=== PATIENT | male | born 1965 | race Caucasian/White ===

== ENCOUNTER 2018-03-13 08:12 | Emergency (ER) | payer SELFPAY ==
[~2018-03-13] VITALS: Ht 182.9 cm; Wt 127.0 kg
[~2018-03-13 08:12] MED LIST: ACIPHEX; AGM875T; ALBU17AE23 IH; AML5T; AMLO10TA82 PO; ASP325T; ASPI-86 PO; CYCL10TA9 PO; DIPH1TAB25 PO; DOXY100C2 PO; ENAL2.5T PO; FLUT10SP NS; HYDR1TAB66 PO; LOSA50TA6 PO; METF500T8 PO; METO200T2 PO; MTP100TCR; NADO40TA PO; NADO80TA PO; ONDAN4ODT PO; OXYC-12 PO; PANT20TA2 PO; PARO40TA47 PO; PENI500T PO; PNT40TEC PO; SULF1TAB35 PO; SULF1TAB38 PO; [UNRECOGNIZED DRUG - OTHER]
[2018-03-13] MEDS ORDERED: ASPIRIN 81 MG CHEW (CHILDREN'S ASA) PO ONE (08:30)
[2018-03-13 08:36] LABS: BASOPHILS # (AUTO) 0.1 10^3/uL (0.0-0.1); BASOPHILS % (AUTO) 1 % (0-10); EOSINOPHILS # (AUTO) 0.5 10^3/uL (0.0-0.3); EOSINOPHILS % (AUTO) 5 % (0-10); HEMATOCRIT 48 % (40-54); HEMOGLOBIN 16.7 G/DL (13.3-17.7); LYMPHOCYTES % (AUTO) 25 % (12-44); MEAN CORPUSCULAR HEMOGLOBIN 28 PG (25-34); MEAN CORPUSCULAR HGB CONC 35 G/DL (32-36); MEAN CORPUSCULAR VOLUME 81 FL (80-99); MEAN PLATELET VOLUME 9.6 FL (7.4-10.4); MONOCYTES # (AUTO) 0.8 X 10^3 (0.0-1.0); MONOCYTES % (AUTO) 6 % (0-12); NEUTROPHILS # (AUTO) 7.4 X 10^3 (1.8-7.8); NEUTROPHILS % (AUTO) 63 % (42-75); PLATELET COUNT 352 10^3/uL (130-400); RED BLOOD COUNT 5.88 10^6/uL (4.35-5.85); RED CELL DISTRIBUTION WIDTH 14.1 % (10.0-14.5); WHITE BLOOD COUNT 11.7 10^3/uL (4.3-11.0)
[2018-03-13] MEDS ORDERED: SITA25TA5 PO (08:41)
[2018-03-13] MEDS ORDERED: LOSA25TA21 PO (08:41)
--- NOTE | 2018-03-13 08:49 | Diagnostic Imaging Report ---
INDICATION: Chest pain. COMPARISON: 04/24/2016. FINDINGS: The lungs are clear. Heart and vessels are normal. There is no effusion or pneumothorax. IMPRESSION: No acute appearing abnormality. Dictated by: Dictated on workstation # [id number]
[2018-03-13 08:54] LABS: PROTHROMBIN TIME PATIENT 13.6 SEC (12.2-14.7)
[2018-03-13 08:57] LABS: ALANINE AMINOTRANSFERASE 24 U/L (0-55); ALKALINE PHOSPHATASE 71 U/L (40-136); BILIRUBIN,TOTAL 0.6 MG/DL (0.1-1.0); BUN/CREATININE RATIO 17; CALCIUM 9.2 MG/DL (8.5-10.1); CARBON DIOXIDE 23 MMOL/L (21-32); CHLORIDE 100 MMOL/L (98-107); CREATININE SERUM 0.88 MG/DL (0.60-1.30); GFR ESTIMATED > 60; GLUCOSE 334 MG/DL (70-105); MAGNESIUM 2.1 MG/DL (1.8-2.4); SODIUM 132 MMOL/L (135-145); TOTAL PROTEIN 7.2 GM/DL (6.4-8.2)
[2018-03-13 09:04] LABS: MYOGLOBIN SERUM 48.6 NG/ML (10.0-92.0)
--- NOTE | 2018-03-13 09:13 | ED Chest Pain ---
General Chief Complaint: Chest Pain Stated Complaint: CP,LEFT ARM NUMB Nursing Triage Note: PT AMBULATES TO ROOM 7 PT STATES APPROX 30 MIN AGO PT HAD STABBING CHEST PAIN RATED 9/10. PT DENIES C/P AT THIS X. PT DENIES SOA,NAUSEA OR DIAPHORISIS. Nursing Sepsis Screen: No Definite Risk Source: patient Exam Limitations: no limitations History of Present Illness Date Seen by Provider: Mar 13, 2018 Time Seen by Provider: 08:20 Initial Comments This 52-year-old gentleman presents to the emergency room with complaints of left lower chest pain that occurred in brief stabbing episodes in rapid succession. He denies any chest pain at present. 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. He reports episodes of tachycardia with rapid drops in blood pressure. He frequently has paresthesias of the upper extremities with these episodes. Patient reports he felt such paresthesias today during his episodes of chest pain. He also felt hot and lightheaded. He took aspirin at home and presented promptly to the emergency room. His primary care provider is Dr. Benavides. His podiatrist assistant is Dr. Hutchins. Review of his chart notes a stress test in 2010 showing a hypertensive response but no ischemia. An echocardiogram in 2014 showed a dilated left atrium, pulmonary artery pressure 25, and some mild valvular regurgitation. Allergies and Home Medications Allergies Coded Allergies: No Known Drug Allergies (Verified , 11/09/07) Home Medications Aspirin 81 Mg Tab.chew, 325 MG PO DAILY, (Reported) Losartan Potassium 25 Mg Tablet, Unknown Dose PO DAILY, (Reported) Nadolol 80 Mg Tablet, 40 MG PO BID, (Reported) TAKES 1/2 TAB OF 80MG TWICE DAILY Pantoprazole Sodium 40 Mg Tablet.dr, 40 MG PO DAILY, (Reported) Paroxetine Hcl 40 Mg Tablet, 40 MG PO HS, (Reported) Patient Home Medication List Home Medication List Reviewed: Yes Review of Systems Constitutional: no symptoms reported EENTM: No Symptoms Reported Respiratory: No Symptoms Reported Cardiovascular: See HPI Gastrointestinal: No Symptoms Reported Genitourinary: No Symptoms Reported Musculoskeletal: no symptoms reported Skin: no symptoms reported Psychiatric/Neurological: See HPI Endocrine: No Symptoms Reported Hematologic/Lymphatic: No Symptoms Reported Past Kfrdrps-Ckctbn-Gdgduo Hx Past Med/Social Hx: Reviewed and Corrections made Patient Social History Alcohol Use: Denies Use Recreational Drug Use: No Smoking Status: Never a Smoker Recent Foreign Travel: No Contact w/Someone Who Travel: No Recent Infectious Disease Expo: No Recent Hopitalizations: No Physical Abuse: No Sexual Abuse: No Immunizations Up To Date Date of Influenza Vaccine: Jul 02, 2012 Past Medical History Surgeries: Yes Gallbladder Respiratory: Yes Cardiac: Yes (Neurally mediated HYPOTENSION) Hypertension Neurological: Yes (CONTUSION, PASSED OUT A FEW TIMES, POSSIBLE HEAT STROKE) Reproductive Disorders: No Gastrointestinal: Yes Musculoskeletal: No Endocrine: Yes Diabetes, Non-Insulin dep HEENT: No Cancer: No Psychosocial: Yes Nursing Suicide Risk Score: 0 Blood Disorders: No Physical Exam Vital Signs Vital Signs - First Documented 03/13/18 08:15 Temp 97.4 Pulse 76 Resp 18 B/P (MAP) 187/99 (128) Pulse Ox 96 Capillary Refill : Less Than 3 Seconds Height, Weight, BMI Height: 6'" Weight: 280lbs. oz. 127.499901ir; BMI Method:Stated General Appearance: No Apparent Distress, WD/WN, Obese HEENT: PERRL/EOMI, Normal ENT Inspection Neck: Normal Inspection Respiratory: Chest Non Tender, Lungs Clear, Normal Breath Sounds, No Accessory Muscle Use, No Respiratory Distress Cardiovascular: Regular Rate, Rhythm, No Edema, No Murmur, Normal Peripheral Pulses Gastrointestinal: Normal Bowel Sounds, Non Tender, Soft Extremity: Normal Capillary Refill, Normal Inspection, No Calf Tenderness, No Pedal Edema, Other (Negative Galilea) Neurologic/Psychiatric: Alert, Oriented x3, No Motor/Sensory Deficits, Normal Mood/Affect, 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 Skin: Normal Color, Warm/Dry Progress/Results/Core Measures Results/Orders Lab Results Laboratory Tests Test 03/13/18 08:25 03/13/18 08:28 03/13/18 11:20 Range/Units White Blood Count 11.7 H 4.3-11.0 10^3/uL Red Blood Count 5.88 H 4.35-5.85 10^6/uL Hemoglobin 16.7 13.3-17.7 G/DL Hematocrit 48 40-54 % Mean Corpuscular Volume 81 80-99 FL Mean Corpuscular Hemoglobin 28 25-34 PG Mean Corpuscular Hemoglobin Concent 35 32-36 G/DL Red Cell Distribution Width 14.1 10.0-14.5 % Platelet Count 352 130-400 10^3/uL Mean Platelet Volume 9.6 7.4-10.4 FL Neutrophils (%) (Auto) 63 42-75 % Lymphocytes (%) (Auto) 25 12-44 % Monocytes (%) (Auto) 6 0-12 % Eosinophils (%) (Auto) 5 0-10 % Basophils (%) (Auto) 1 0-10 % Neutrophils # (Auto) 7.4 1.8-7.8 X 10^3 Lymphocytes # (Auto) 3.0 1.0-4.0 X 10^3 Monocytes # (Auto) 0.8 0.0-1.0 X 10^3 Eosinophils # (Auto) 0.5 H 0.0-0.3 10^3/uL Basophils # (Auto) 0.1 0.0-0.1 10^3/uL Prothrombin Time 13.6 12.2-14.7 SEC INR Comment 1.0 0.8-1.4 Activated Partial Thromboplast Time 30 24-35 SEC Sodium Level 132 L 135-145 MMOL/L Potassium Level 4.0 3.6-5.0 MMOL/L Chloride Level 100 98-107 MMOL/L Carbon Dioxide Level 23 21-32 MMOL/L Anion Gap 9 5-14 MMOL/L Blood Urea Nitrogen 15 7-18 MG/DL Creatinine 0.88 0.60-1.30 MG/DL Estimat Glomerular Filtration Rate > 60 BUN/Creatinine Ratio 17 Glucose Level 334 H 70-105 MG/DL Calcium Level 9.2 8.5-10.1 MG/DL Magnesium Level 2.1 1.8-2.4 MG/DL Total Bilirubin 0.6 0.1-1.0 MG/DL Aspartate Amino Transf (AST/SGOT) 21 5-34 U/L Alanine Aminotransferase (ALT/SGPT) 24 0-55 U/L Alkaline Phosphatase 71 40-136 U/L Myoglobin 48.6 10.0-92.0 NG/ML Troponin I < 0.30 < 0.30 <0.30 NG/ML Total Protein 7.2 6.4-8.2 GM/DL Albumin 4.0 3.2-4.5 GM/DL Glucometer 328 H 70-110 MG/DL My Orders Orders - GARY RAMSAY MD Cbc With Automated Diff (03/13/18 08:28) Magnesium (03/13/18 08:28) Chest 1 View, Ap/Pa Only (03/13/18 08:28) Ekg Tracing (03/13/18 08:28) Cardiac Profile 1 (03/13/18 08:28) Comprehensive Metabolic Panel (03/13/18 08:28) Myoglobin Serum (03/13/18 08:28) Protime With Inr (03/13/18 08:28) Partial Thromboplastin Time (03/13/18 08:28) O2 (03/13/18 08:28) Monitor-Rhythm Ecg Trace Only (03/13/18 08:28) Aspirin Chewable Tablet (Baby Aspirin Ch (03/13/18 08:30) Saline Lock/Iv-Start (03/13/18 08:28) Accucheck Stat ONCE (03/13/18 08:31) Troponin I (03/13/18 11:25) Vital Signs/I&O 03/13/18 03/13/18 08:15 13:39 Temp 97.4 Pulse 76 76 Resp 18 18 B/P (MAP) 187/99 (128) 142/68 (128) Pulse Ox 96 96 Blood Pressure Mean: 128 FSBG Bedside Testing Finger Stick Blood Glucose: 328 Blood Glucose Action Taken: REPORTED TO DR Mackey Progress Note #1: Time: 09:35 Progress Note Workup has been unremarkable. Patient states he has had one slight twinge of discomfort in his chest since arrival but otherwise is pain-free. Case was reviewed with Dr. Asif to advise performing a 3 hour troponin. If negative, close outpatient follow-up is recommended. Progress Note #2: Progress Note Patient had no further pain and repeat troponin was negative. Patient was dismissed to outpatient follow-up. Initial ECG Impression Date: Mar 13, 2018 Initial ECG Impression Time: 08:17 Initial ECG Rate: 74 Initial ECG Rhythm: Normal Sinus Comment Sinus rhythm with no ST elevation or depression. First-degree AV block. No axis deviation. Diagnostic Imaging Diagonstic Imaging: Xray Plain Films/CT/US/NM/MRI: chest Comments Chest x-ray viewed by me and report reviewed. See report below: NAME: MICHELLE PORTILLO MED REC#: [id number] PT STATUS: REG ER : 1965 PHYSICIAN: GARY RAMSAY MD ADMIT DATE: 03/13/18/ER Draft Date of Exam:03/13/18 CHEST 1 VIEW, AP/PA ONLY INDICATION: Chest pain. COMPARISON: 04/24/2016. FINDINGS: The lungs are clear. Heart and vessels are normal. There is no effusion or pneumothorax. IMPRESSION: No acute appearing abnormality. Dictated on workstation # [id number] Dict: 03/13/18 0846 Trans: 03/13/18 0849 [facility] [id number] Interpreted by: SHMUEL ANNE Departure Impression Primary Impression: Chest pain Qualified Codes: R07.9 - Chest pain, unspecified Additional Impressions: Hypertension Qualified Codes: I10 - Essential (primary) hypertension Lightheadedness Disposition: 01 HOME, SELF-CARE Condition: Improved Departure-Patient Inst. Referrals: Zhanna ASIF MD, JACQUELINE S DO (PCP/Family) Primary Care Physician Patient Instructions: Chest Pain (DC) Add. Discharge Instructions: Return to care if symptoms worsen again. Follow-up with a podiatrist assistant as soon as possible. You may see Dr. Asif while Dr. Hutchins is out of the office. His contact information is below. All discharge instructions reviewed with patient and/or family. Voiced understanding. Copy Copies To 1: RODO BENAVIDES JOSHUA T MD Mar 13, 2018 09:13
[2018-03-13 13:39] VITALS: BP 142/68
== END 2018-03-13 13:38 | disposition home or self-care (01) ==
LOC: EDUNIT# 08:12 → ER 08:14
DX: R07.89 Other chest pain (principal); I10 Essential (primary) hypertension; R42 Dizziness and giddiness; E11.9 Type 2 diabetes mellitus without complications; Z79.82 Long term (current) use of aspirin
CPT/HCPCS: 36415; 71045; 80053; 82962; 83735; 83874; 84484; 85025; 85610; 85730; 93005; 93041

== ENCOUNTER 2022-10-11 20:57 | Emergency (ER) | payer SELFPAY ==
[~2022-10-11 20:57] MED LIST changes: +LOSA25TA41 PO; +SITA25TA5 PO
--- NOTE | 2022-10-11 21:30 | ED EENT ---
History of Present Illness General Chief Complaint: General Problems/Pain Stated Complaint: ELEV BP/NOSEBLEED Nursing Triage Note: PATIENT ARRIVAL TO ER VIA PRIVATE VEHICLE WITH COMPLAINT OF HYPERTENSION. PT STATES THAT HE TAKES MULTIPLE BLOOD PRESSURE MEDICATIONS AND ITS NORMALLY MUCH BETTER THAN IT IS TONIGHT. PT STATES THAT HE HAS HAD NOSE BLEEDS OFF AND ON THE LAST 3 DAYS. PATIENT DENIES OTHER COMPLAINTS. History of Present Illness Date Seen by Provider: Oct 11, 2022 Time Seen by Provider: 21:20 Initial Comments 57-year-old male presents with sporadic nosebleeds that have been going on for the last few days. He does not feel like there is anything to make it worse or better. He also was concerned because his blood pressure was elevated on his home monitor and wanted to have it checked out. Patient does not have any headaches vision changes chest pain shortness of breath or any other systemic complaints. Allergies and Home Medications Allergies Coded Allergies: No Known Drug Allergies (Verified , 11/09/07) Patient Home Medication List Home Medication List Reviewed: Yes Aspirin ([facility] Aspirin) 81 Mg Tab.chew, 325 MG PO DAILY, (Reported) Entered as Reported by: MORRO GARCIA on 02/15/11 1622 Losartan Potassium (Losartan Potassium) 25 Mg Tablet, Unknown Dose PO DAILY, (Reported) Entered as Reported by: MORRO GARCIA on 03/13/18 0841 Nadolol (Nadolol) 80 Mg Tablet, 40 MG PO BID, (Reported) Entered as Reported by: HAILEY CRAWFORD on 01/12/13 0946 Pantoprazole Sodium (Protonix) 40 Mg Tablet.dr, 40 MG PO DAILY, (Reported) Entered as Reported by: HAILEY CRAWFORD on 01/12/13 0948 Paroxetine Hcl (Paxil) 40 Mg Tablet, 40 MG PO HS, (Reported) Entered as Reported by: HAILEY CRAWFORD on 01/12/13 0948 Sitagliptin Phosphate (Januvia) 25 Mg Tablet, Unknown Dose PO, (Reported) Entered as Reported by: MORRO GARCIA on 03/13/18 0841 Review of Systems Review of Systems Constitutional: no symptoms reported Eyes: No Symptoms Reported Ears: No Symptoms Reported Nose: epistaxis Mouth: no symptoms reported Throat: no symptoms reported Respiratory: no symptoms reported Cardiovascular: no symptoms reported Gastrointestinal: no symptoms reported Past Fpqsftt-Lrkxmf-Notjtv Hx Patient Social History Tobacco Use?: Yes Tobacco type used: Cigarettes Smoking Status: Current Someday Smoker Use of E-Cig and/or Vaping dev: No Substance use?: No Alcohol Use?: No Pt feels they are or have been: No Immunizations Up To Date Influenza Vaccine Up-to-Date: No; Not Current Past Medical History Surgeries: Yes Gallbladder Respiratory: Yes Cardiac: Yes (Neurally mediated HYPOTENSION) Hypertension Neurological: Yes (CONTUSION, PASSED OUT A FEW TIMES, POSSIBLE HEAT STROKE) Reproductive Disorders: No Gastrointestinal: Yes Musculoskeletal: No Endocrine: Yes Diabetes, Non-Insulin dep HEENT: No Cancer: No Psychosocial: Yes Blood Disorders: No Physical Exam Vital Signs Vital Signs - First Documented 10/11/22 21:05 Temp 36.3 Pulse 60 Resp 18 B/P (MAP) 197/110 (139) Pulse Ox 96 O2 Delivery Room Air Height, Weight, BMI Height: 6'" Weight: 280lbs. oz. 127.793938kk; BMI Method:Stated General Appearance: WD/WN, no apparent distress Nose: dried blood Neck: full range of motion, supple Cardiovascular: normal peripheral pulses, regular rate, rhythm Respiratory: chest non-tender, lungs clear, normal breath sounds Neurologic/Psychiatric: alert, normal mood/affect, oriented x 3 Skin: normal color, warm/dry Progress/Results/Core Measures Results/Orders My Orders Orders - CONCHA MEHTA DO Oxymetazoline 0.05% Nasal [place]ber[place] (Afrin 0. (10/12/22 09:00) Oxymetazoline 0.05% Nasal [place]ber[place] (Afrin 0. (10/11/22 21:40) Medications Given in ED Current Medications Medications Dose Ordered Sig/Brian Route Start Time Stop Time Status Last Admin Dose Admin Oxymetazoline HCl 30 ml STK-MED ONCE .ROUTE 10/11/22 21:40 10/11/22 21:44 DC 10/11/22 21:46 30 ML Vital Signs/I&O 10/11/22 10/11/22 21:05 22:09 Temp 36.3 Pulse 60 66 Resp 18 18 B/P (MAP) 197/110 (139) 150/77 Pulse Ox 96 99 O2 Delivery Room Air Room Air Blood Pressure Mean: 139 Progress Progress Note : Progress Note Patient with no active nosebleed while in the ER. He had resolved prior to arrival. We did administer Afrin which she reports seem to help significantly. Patient's blood pressure remained around systolics 150 throughout his stay. He is currently on blood pressure medication. Recommend he monitors that and follows up with his primary care provider as needed. Patient should use Afrin twice to 3 times daily as needed for the nosebleed. I did discuss with him limited to 3 days of use. Patient was also given precautions to not blow his nose, sneeze with an open mouth and other epistaxis precautions. Patient stable and discharged Departure Impression Primary Impression: Epistaxis Additional Impression: Elevated blood pressure reading Disposition: HOME, SELF-CARE Condition: Stable Departure-Patient Inst. Referrals: RODO OSCAR DO (PCP/Family) Primary Care Physician Patient Instructions: High Blood Pressure in Adults, Nosebleeds (DC), Humidifiers Add. Discharge Instructions: Afrin 2-3 times daily as needed over the next 2 to 3 days. Please limit to 3 days maximum use. May also use a thin layer of Vaseline to help moisten your nose. Follow-up with your primary care provider if your blood pressure reading continue to be slightly elevated above your normal for reevaluation of your blood pressure medications and further checkup. Return to the ER with any concerns. All discharge instructions reviewed with patient and/or family. Voiced understanding. CONCHA MEHTA DO Oct 11, 2022 21:30
[2022-10-11] MEDS ORDERED: OXYMETAZOLINE (AFRIN) 0.05% NA 30 ML BTL ONE (21:40)
[2022-10-11 22:09] VITALS: BP 150/77
[2022-10-12] MEDS ORDERED: OXYMETAZOLINE (AFRIN) 0.05% NA 30 ML BTL SCH (09:00)
== END 2022-10-11 22:13 | disposition home or self-care (01) ==
LOC: EDUNIT# 20:57 → ER 21:00
DX: R04.0 Epistaxis (principal); I10 Essential (primary) hypertension; F17.210 Nicotine dependence, cigarettes, uncomplicated; Z28.310 Unvaccinated for COVID-19
CPT/HCPCS: 99283

== ENCOUNTER 2023-07-14 10:28 | Emergency (ER) | payer SELFPAY ==
[~2023-07-14] VITALS: Ht 180.3 cm; Wt 124.0 kg
[2023-07-14] MEDS ORDERED: NS IV 1000 ML 1,000 ML IV STA (10:55)
[2023-07-14] MEDS ORDERED: dexAMETHasone INJ 10 MG/ML 1 ML VIAL IV ONE (11:00)
[2023-07-14 11:02] LABS: ALBUMIN 4.2 GM/DL (3.2-4.5); BASOPHILS # (AUTO) 0.1 10^3/uL (0.0-0.1); BASOPHILS % (AUTO) 1 % (0-10); EOSINOPHILS % (AUTO) 9 % (0-10); HEMATOCRIT 50 % (40-54); HEMOGLOBIN 16.9 g/dL (13.3-17.7); LYMPHOCYTES % (AUTO) 28 % (12-44); MEAN CORPUSCULAR HEMOGLOBIN 29 pg (25-34); MEAN CORPUSCULAR HGB CONC 34 g/dL (32-36); MEAN CORPUSCULAR VOLUME 86 fL (80-99); MEAN PLATELET VOLUME 9.6 fL (9.0-12.2); MONOCYTES # (AUTO) 0.8 10^3/uL (0.0-1.0); MONOCYTES % (AUTO) 7 % (0-12); NEUTROPHILS % (AUTO) 55 % (42-75); PLATELET COUNT 375 10^3/uL (130-400); POTASSIUM 3.4 MMOL/L (3.6-5.0); WHITE BLOOD COUNT 10.9 10^3/uL (4.3-11.0)
[2023-07-14 11:04] LABS: CALCIUM 9.2 MG/DL (8.5-10.1)
[2023-07-14 11:05] LABS: TOTAL PROTEIN 7.7 GM/DL (6.4-8.2)
[2023-07-14 11:07] LABS: BILIRUBIN,TOTAL 0.5 MG/DL (0.1-1.0)
[2023-07-14 11:09] LABS: CREATININE SERUM 0.78 MG/DL (0.60-1.30)
--- NOTE | 2023-07-14 11:09 | ED General ---
General Chief Complaint: Respiratory Problems Stated Complaint: SOA/INSECT BITE Source of Information: Patient Exam Limitations: No Limitations History of Present Illness Date Seen by Provider: Jul 14, 2023 Time Seen by Provider: 10:47 Initial Comments Here with complaint of some dizziness weakness with potentially some mild shortness of air. He was stung by some sort 3 days ago to the back of the neck. He has an area of swelling to that. Denies fever or chills. He has been stung by a couple different insects without significant allergic reaction in the past. He is unsure of what is going on. Does have history of diabetes but does not know what his sugar at [facility] check. Also has a history of hypertension and diabetes and hypotension syndrome at times. He denies chest pain, nausea, vomiting, diarrhea or dysuria. Reports eating and drinking okay. Timing/Duration: 2-3 Days Severity: Mild, Moderate Associated Systoms: No Cough, No Nausea/Vomiting; Shortness of Air, Weakness Allergies and Home Medications Allergies Coded Allergies: No Known Drug Allergies (Verified , 07/14/23) Patient Home Medication List Home Medication List Reviewed: Yes Aspirin ([facility] Aspirin) 81 Mg Tab.chew, 325 MG PO DAILY, (Reported) Entered as Reported by: MORRO GARCIA on 02/15/11 1622 Losartan Potassium (Losartan Potassium) 25 Mg Tablet, Unknown Dose PO DAILY, (Re ported) Entered as Reported by: MORRO GARCIA on 03/13/18 0841 Nadolol (Nadolol) 80 Mg Tablet, 40 MG PO BID, (Reported) Entered as Reported by: HAILEY CRAWFORD on 01/12/13 0946 Pantoprazole Sodium (Protonix) 40 Mg Tablet.dr, 40 MG PO DAILY, (Reported) Entered as Reported by: HAILEY CRAWFORD on 01/12/13 0948 Paroxetine Hcl (Paxil) 40 Mg Tablet, 40 MG PO HS, (Reported) Entered as Reported by: HAILEY CRAWFORD on 01/12/13 0948 Sitagliptin Phosphate (Januvia) 25 Mg Tablet, Unknown Dose PO, (Reported) Entered as Reported by: MORRO GARCIA on 03/13/18 0841 Review of Systems Review of Systems Constitutional: see HPI; No chills; dizziness; No fever; weakness EENTM: No nose congestion, No nose pain Respiratory: No cough; short of breath Cardiovascular: no symptoms reported Gastrointestinal: No nausea, No vomiting Genitourinary: no symptoms reported Musculoskeletal: no symptoms reported Skin: lesions; No pruritus Past Uctkvkz-Hhyydy-Cdciec Hx Past Medical History Surgeries: Yes Gallbladder Respiratory: Yes Cardiac: Yes (Neurally mediated HYPOTENSION) Hypertension Neurological: Yes (CONTUSION, PASSED OUT A FEW TIMES, POSSIBLE HEAT STROKE) Reproductive Disorders: No Gastrointestinal: Yes Musculoskeletal: No Endocrine: Yes Diabetes, Non-Insulin dep HEENT: No Cancer: No Psychosocial: Yes Blood Disorders: No Family Medical History Reviewed Nursing Family Hx Physical Exam Vital Signs Vital Signs - First Documented 07/14/23 10:30 Temp 35.9 Pulse 69 Resp 18 B/P (MAP) 156/81 (106) Pulse Ox 98 O2 Delivery Room Air Capillary Refill : Height, Weight, BMI Height: 6'" Weight: 280lbs. oz. 127.326978ai; BMI Method:Stated General Appearance: No Apparent Distress, WD/WN HEENT: PERRL/EOMI, Pharynx Normal Neck: Supple, Other (3 x 3 cm area of induration without fluctuance to the back of the neck on the right side lower where he was stung. There is some redness without significant heat.) Respiratory: Lungs Clear, Normal Breath Sounds Cardiovascular: Regular Rate, Rhythm, No Murmur Gastrointestinal: Non Tender, Soft Neurologic/Psychiatric: Alert, Oriented x3 Skin: Normal Color, Warm/Dry Progress/Results/Core Measures Suspected Sepsis SIRS Temperature: Pulse: Respiratory Rate: Laboratory Tests 07/14/23 10:40: White Blood Count 10.9 Blood Pressure / Mean: Laboratory Tests 07/14/23 10:40: Creatinine 0.78, Platelet Count 375, Total Bilirubin 0.5 Results/Orders Lab Results Laboratory Tests Test 07/14/23 10:40 Range/Units White Blood Count 10.9 4.3-11.0 10^3/uL Red Blood Count 5.82 H 4.30-5.52 10^6/uL Hemoglobin 16.9 13.3-17.7 g/dL Hematocrit 50 40-54 % Mean Corpuscular Volume 86 80-99 fL Mean Corpuscular Hemoglobin 29 25-34 pg Mean Corpuscular Hemoglobin Concent 34 32-36 g/dL Red Cell Distribution Width 13.8 10.0-14.5 % Platelet Count 375 130-400 10^3/uL Mean Platelet Volume 9.6 9.0-12.2 fL Immature Granulocyte % (Auto) 1 % Neutrophils (%) (Auto) 55 42-75 % Lymphocytes (%) (Auto) 28 12-44 % Monocytes (%) (Auto) 7 0-12 % Eosinophils (%) (Auto) 9 0-10 % Basophils (%) (Auto) 1 0-10 % Neutrophils # (Auto) 6.0 1.8-7.8 10^3/uL Lymphocytes # (Auto) 3.0 1.0-4.0 10^3/uL Monocytes # (Auto) 0.8 0.0-1.0 10^3/uL Eosinophils # (Auto) 1.0 H 0.0-0.3 10^3/uL Basophils # (Auto) 0.1 0.0-0.1 10^3/uL Immature Granulocyte # (Auto) 0.1 0.0-0.1 10^3/uL Sodium Level 138 135-145 MMOL/L Potassium Level 3.4 L 3.6-5.0 MMOL/L Chloride Level 101 98-107 MMOL/L Carbon Dioxide Level 26 21-32 MMOL/L Anion Gap 11 5-14 MMOL/L Blood Urea Nitrogen 7 7-18 MG/DL Creatinine 0.78 0.60-1.30 MG/DL Estimat Glomerular Filtration Rate 103 BUN/Creatinine Ratio 9 Glucose Level 125 H 70-105 MG/DL Calcium Level 9.2 8.5-10.1 MG/DL Corrected Calcium 9.0 8.5-10.1 MG/DL Total Bilirubin 0.5 0.1-1.0 MG/DL Aspartate Amino Transf (AST/SGOT) 38 H 5-34 U/L Alanine Aminotransferase (ALT/SGPT) 31 0-55 U/L Alkaline Phosphatase 61 40-136 U/L C-Reactive Protein High Sensitivity 0.29 0.00-0.50 MG/DL Total Protein 7.7 6.4-8.2 GM/DL Albumin 4.2 3.2-4.5 GM/DL My Orders Orders - SANIYA COWAN MD Cbc And Automated Diff (07/14/23 10:55) Comprehensive Metabolic Panel (07/14/23 10:55) Hs C Reactive Protein (07/14/23 10:55) Ns Iv 1000 Ml (Ns Iv 1000 Ml) (07/14/23 10:55) Ed Iv/Invasive Line Start (07/14/23 10:55) Dexamethasone Injection (Dexamethasone (07/14/23 11:00) Medications Given in ED Current Medications Medications Dose Ordered Sig/Brian Route Start Time Stop Time Status Last Admin Dose Admin Dexamethasone Sodium Phosphate 10 mg ONCE ONCE IV 07/14/23 11:00 07/14/23 11:01 DC 07/14/23 11:24 10 MG Vital Signs/I&O 07/14/23 10:30 Temp 35.9 Pulse 69 Resp 18 B/P (MAP) 156/81 (106) Pulse Ox 98 O2 Delivery Room Air Capillary Refill : Progress Note : Progress Note Seen and evaluated. IV, labs including CBC, CMP and CRP ordered. Normal saline 1 L bolus and Decadron 10 mg IV ordered. Monitor patient. Differential diagnosis includes allergic reaction, electrolyte abnormality, dehydration, hyperglycemia 1240: Overall doing better. Labs reviewed and no significant abnormality noted on CBC, CMP or CRP. He is actually having less symptoms after the Decadron and fluids. Discharged home with return precautions. Patient verbalized understanding of instructions and agreement with plan. Departure Impression Primary Impression: Bee sting reaction Qualified Codes: T63.444A - Toxic effect of venom of bees, undetermined, initial encounter Disposition: 01 HOME, SELF-CARE Condition: Improved Departure-Patient Inst. Decision time for Depature: 12:43 Referrals: RODO BENAVIDES DO (PCP/Family) Primary Care Physician Patient Instructions: Insect Bites and Stings (DC) Add. Discharge Instructions: All discharge instructions reviewed with patient and/or family. Voiced understanding. You may use topical Benadryl/diphenhydramine cream or hydrocortisone cream to area of concern per package directions. Continue normal regular diet but minimize sugary fluids as the steroids may increase your blood sugar. Follow-up with Dr. Benavides this week for recheck and further evaluation as needed. Return for worse pain, fever, vomiting, weakness, breathing problems, increased swelling or redness to the area or other concerns as needed. SANIYA COWAN MD Jul 14, 2023 11:09
[2023-07-14 12:54] VITALS: BP 175/91
== END 2023-07-14 12:57 | disposition home or self-care (01) ==
LOC: EDUNIT# 10:28 → ER 10:30
DX: T63.441A Toxic effect of venom of bees, accidental (unintentional), initial encounter (principal); R42 Dizziness and giddiness; R53.1 Weakness; R06.02 Shortness of breath
CPT/HCPCS: 36415; 80053; 85025; 86141; 96374